=== PATIENT | male | born 2000 | race Caucasian/White ===

== ENCOUNTER 2024-04-08 20:00 | Emergency (ER) | payer MEDICAID ==
[~2024-04-08] VITALS: Ht 180.3 cm; Wt 123.0 kg
[2024-04-08 20:11] VITALS: O2SAT 99
[2024-04-08 20:25] VITALS: BP 150/97; PULSE 90; TEMP 98.4; O2SAT 100
[2024-04-08] MEDS ORDERED: CETI10TA6 MT (21:59)
[2024-04-08] MEDS ORDERED: AMOX1TAB16 MT (21:59)
[2024-04-08] MEDS ORDERED: IBUP-2029 PO (21:59)
[2024-04-08] MEDS ORDERED: FLUT9.9S BOTHNSTRLS (21:59)
[2024-04-08 22:05] VITALS: RESP 16
== END 2024-04-08 22:54 | disposition home or self-care (01) ==
LOC: ER 20:00
DX: J01.90 Acute sinusitis, unspecified (principal); R51.9 Headache, unspecified
CPT/HCPCS: 99283

== ENCOUNTER 2024-04-09 22:29 | Emergency (ER) | payer MEDICAID ==
[~2024-04-09] VITALS: Ht 180.3 cm; Wt 120.0 kg
[~2024-04-09 22:29] MED LIST: AMOX1TAB16 MT; CETI10TA6 MT; FLUT9.9S BOTHNSTRLS; IBUP-2029 PO
[2024-04-09 22:36] VITALS: O2SAT 98
[2024-04-10] MEDS: KETOROLAC 30MG/ML VIAL IV ONE (02:00)
[2024-04-10] MEDS: SODIUM CHLORIDE 0.9% 1,000 ML IV ONE (02:00)
[2024-04-10] MEDS: METOCLOPRAMIDE HCL 10MG/2ML VIAL IV ONE (02:00)
[2024-04-10] MEDS: DIPHENHYDRAMINE 50MG/ML VIAL IV ONE (02:01)
[2024-04-10 02:44] VITALS: BP 128/86; PULSE 116; RESP 17; TEMP 36.89184; O2SAT 98
== END 2024-04-10 04:17 | disposition home or self-care (01) ==
LOC: ER 22:29
DX: R51.9 Headache, unspecified (principal); Z79.899 Other long term (current) drug therapy
CPT/HCPCS: 99284; 96374; 96375; J7030; J1200; J1885; J2765